=== PATIENT | male | born 2000 | race African-American/Black ===

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

== ENCOUNTER 2022-07-08 11:21 | Inpatient (IN) | payer BC, MEDICAID, OTHER ==
[~2022-07-08] VITALS: Ht 172.7 cm; Wt 75.5 kg
[2022-07-08 12:15] LABS: Basophils # (auto) 0 10 ^3/uL (0-0.2); Basophils % (auto) 0.2 % (0.0-2.0); Eosinophils % (auto) 9.1 % (0.0-7.0); Hematocrit 36.9 % (41.0-53.0); Hemoglobin 12.4 g/dL (13.5-17.5); Lymphocytes # (auto) 1.9 10 ^3/uL (0.4-5.4); Lymphocytes % (auto) 17.5 % (10.0-50.0); Mean Corpuscular Hemoglobin 28.8 pg (28.0-32.0); Mean Corpuscular Hgb Conc. 33.6 g/dL (32.0-36.0); Mean Corpuscular Volume 85.7 fL (80.0-100.0); Neutrophils % (auto) 64.2 % (37.0-80.0); Nucleated Red Blood Cells % 0.1 %; Red Blood Cells 4.31 10^6/uL (4.5-5.90); Red Cell Distribution Width 12.2 % (11.8-14.3); White Blood Cell 10.9 10^3/uL (4.4-10.8)
[2022-07-08] MEDS ORDERED: SODIUM CHLORIDE 0.9% 1,000 ML IV ONE ×3 (12:15→16:45)
[2022-07-08] MEDS ORDERED: PANTOPRAZOLE 40 MG/10 ML VIAL INJ IV ONE (12:15)
[2022-07-08 12:30] LABS: INR 1.03 (0.9-1.15); Partial Thromboplastin Time 31.2 sec (24.6-33.4)
[2022-07-08 12:45] LABS: Potassium 3.6 mmol/L (3.5-5.1)
[2022-07-08 12:52] LABS: Albumin 2.5 g/dL (3.4-5.0); BUN/Creatinine Ratio 5.9; Bilirubin, Total 0.3 mg/dL (0.2-1.0); Calcium 8.6 mg/dL (8.5-10.1); Total Protein 7.2 g/dL (6.4-8.2)
[2022-07-08] MEDS ORDERED: ONDANSETRON HCL 4 MG/2 ML VIAL IV ONE (13:15)
[2022-07-08] MEDS ORDERED: MORPHINE SULFATE 4 MG/ML SYR/VIAL IV ONE (13:15)
[2022-07-08] MEDS ORDERED: IOHEXOL 300 MG/ML 100ML BOTTLE IJ ONE (13:26)
[2022-07-08] MEDS ORDERED: cefTRIAXone 1GM/50ML D5W 50 ML IV ONE (15:30)
[2022-07-08] MEDS: metroNIDAZOLE 500MG/100ML 100 ML IV ONE ×2 (16:15→17:49)
[2022-07-08] MEDS: OCTREOTIDE ACETATE 500 MCG in SODIUM CHL 0.9% 99 ML IV SCH (16:45)
[2022-07-08] MEDS ORDERED: OCTREOTIDE ACETATE 100 MCG in SODIUM CHL 0.9% 50 ML IV ONE (16:45)
[2022-07-08] MEDS ORDERED: ONDANSETRON HCL 4 MG/2 ML VIAL IV PRN (16:45)
[2022-07-08] MEDS: HYDROcodone-ACET 5/325MG TAB PO PRN (17:37)
[2022-07-08] MEDS: MORPHINE SULFATE INJ 2 MG/ml SYRG IV PRN (20:35)
[2022-07-08 22:00] VITALS: BP 108/58
[2022-07-08] MEDS: metroNIDAZOLE 500MG/100ML 100 ML IV SCH (22:17)
[2022-07-08] MEDS: PANTOPRAZOLE 40 MG/10 ML VIAL INJ IV SCH (22:17)
[2022-07-08 22:23] VITALS: BP 108/58
[2022-07-08 22:52] LABS: Basophils # (auto) 0 10 ^3/uL (0-0.2); Basophils % (auto) 0.3 % (0.0-2.0); Eosinophils # (auto) 1.1 10 ^3/uL (0-0.8); Eosinophils % (auto) 9.2 % (0.0-7.0); Hematocrit 36.1 % (41.0-53.0); Hemoglobin 12.1 g/dL (13.5-17.5); Lymphocytes # (auto) 2.1 10 ^3/uL (0.4-5.4); Lymphocytes % (auto) 18.1 % (10.0-50.0); Mean Corpuscular Hemoglobin 28.9 pg (28.0-32.0); Mean Corpuscular Hgb Conc. 33.4 g/dL (32.0-36.0); Mean Corpuscular Volume 86.5 fL (80.0-100.0); Monocytes # (auto) 1.2 10 ^3/uL (0-1.3); Monocytes % (auto) 10.2 % (0.0-12.0); Neutrophils # (auto) 7.1 10 ^3/uL (1.6-8.6); Neutrophils % (auto) 62.2 % (37.0-80.0); Nucleated Red Blood Cells % 0.1 %; Red Blood Cells 4.18 10^6/uL (4.5-5.90); Red Cell Distribution Width 12.2 % (11.8-14.3); White Blood Cell 11.4 10^3/uL (4.4-10.8)
[2022-07-09] MEDS: MORPHINE SULFATE INJ 2 MG/ml SYRG IV PRN ×2 (02:05→10:22)
[2022-07-09] MEDS: OCTREOTIDE ACETATE 500 MCG in SODIUM CHL 0.9% 99 ML IV SCH (02:34)
[2022-07-09 05:00] VITALS: BP 113/67
[2022-07-09] MEDS: metroNIDAZOLE 500MG/100ML 100 ML IV SCH ×3 (05:31→21:51)
[2022-07-09 06:21] LABS: Albumin 2.3 g/dL (3.4-5.0); Calcium 8.1 mg/dL (8.5-10.1); Potassium 4.8 mmol/L (3.5-5.1)
[2022-07-09 06:25] LABS: BUN/Creatinine Ratio 5.3; Bilirubin, Total 0.4 mg/dL (0.2-1.0); Total Protein 6.2 g/dL (6.4-8.2)
[2022-07-09 09:00] VITALS: BP 105/51
[2022-07-09] MEDS: cefTRIAXone 1GM/50ML D5W 50 ML IV SCH (10:38)
[2022-07-09] MEDS: PANTOPRAZOLE 40 MG/10 ML VIAL INJ IV SCH ×2 (10:38→21:51)
[2022-07-09 10:47] LABS: Basophils # (auto) 0 10 ^3/uL (0-0.2); Basophils % (auto) 0.2 % (0.0-2.0); Eosinophils # (auto) 0.9 10 ^3/uL (0-0.8); Eosinophils % (auto) 8.3 % (0.0-7.0); Hematocrit 38.2 % (41.0-53.0); Hemoglobin 12.8 g/dL (13.5-17.5); Lymphocytes # (auto) 1.6 10 ^3/uL (0.4-5.4); Lymphocytes % (auto) 14.7 % (10.0-50.0); Mean Corpuscular Hemoglobin 29.1 pg (28.0-32.0); Mean Corpuscular Hgb Conc. 33.5 g/dL (32.0-36.0); Mean Corpuscular Volume 86.9 fL (80.0-100.0); Monocytes % (auto) 9.3 % (0.0-12.0); Neutrophils # (auto) 7.2 10 ^3/uL (1.6-8.6); Neutrophils % (auto) 67.5 % (37.0-80.0); Nucleated Red Blood Cells % 0.1 %; Red Cell Distribution Width 12.1 % (11.8-14.3); White Blood Cell 10.7 10^3/uL (4.4-10.8)
[2022-07-09 13:07] VITALS: BP 107/66
[2022-07-09] MEDS: methylPREDNISolone SOD SUCC 40 MG/ML VL IV SCH ×2 (14:21→21:51)
[2022-07-09] MEDS: MESALAMINE 400mg Delayed Release Cap PO SCH ×2 (14:21→21:51)
[2022-07-09 16:55] VITALS: BP 99/56
[2022-07-09 22:00] VITALS: BP 111/60
[2022-07-10 05:00] VITALS: BP 100/61
[2022-07-10] MEDS: methylPREDNISolone SOD SUCC 40 MG/ML VL IV SCH ×3 (05:08→21:16)
[2022-07-10] MEDS: MESALAMINE 400mg Delayed Release Cap PO SCH ×3 (05:09→21:16)
[2022-07-10] MEDS: metroNIDAZOLE 500MG/100ML 100 ML IV SCH ×3 (05:09→21:15)
[2022-07-10 07:35] LABS: Albumin 2.2 g/dL (3.4-5.0); Calcium 8.6 mg/dL (8.5-10.1); Potassium 4.1 mmol/L (3.5-5.1)
[2022-07-10 07:39] LABS: BUN/Creatinine Ratio 8.6; Bilirubin, Total 0.3 mg/dL (0.2-1.0); Total Protein 6.8 g/dL (6.4-8.2)
[2022-07-10 08:17] LABS: Basophils # (auto) 0 10 ^3/uL (0-0.2); Basophils % (auto) 0.1 % (0.0-2.0); Eosinophils # (auto) 0 10 ^3/uL (0-0.8); Eosinophils % (auto) 0.1 % (0.0-7.0); Hematocrit 38.3 % (41.0-53.0); Hemoglobin 12.9 g/dL (13.5-17.5); Lymphocytes % (auto) 7.7 % (10.0-50.0); Mean Corpuscular Hemoglobin 28.9 pg (28.0-32.0); Mean Corpuscular Hgb Conc. 33.6 g/dL (32.0-36.0); Monocytes # (auto) 0.6 10 ^3/uL (0-1.3); Monocytes % (auto) 4.6 % (0.0-12.0); Neutrophils # (auto) 11.5 10 ^3/uL (1.6-8.6); Neutrophils % (auto) 87.5 % (37.0-80.0); Red Blood Cells 4.45 10^6/uL (4.5-5.90); Red Cell Distribution Width 12.1 % (11.8-14.3); White Blood Cell 13.1 10^3/uL (4.4-10.8)
[2022-07-10 09:00] VITALS: BP 115/67
[2022-07-10] MEDS: PANTOPRAZOLE 40 MG/10 ML VIAL INJ IV SCH ×2 (09:39→21:16)
[2022-07-10] MEDS: cefTRIAXone 1GM/50ML D5W 50 ML IV SCH (09:39)
[2022-07-10 12:30] VITALS: BP 112/62
[2022-07-10 16:38] VITALS: BP 122/71
[2022-07-10 22:00] VITALS: BP 109/63
[2022-07-11 05:00] VITALS: BP 106/55
[2022-07-11] MEDS: methylPREDNISolone SOD SUCC 40 MG/ML VL IV SCH ×3 (05:38→21:28)
[2022-07-11] MEDS: MESALAMINE 400mg Delayed Release Cap PO SCH ×3 (05:38→21:28)
[2022-07-11] MEDS: metroNIDAZOLE 500MG/100ML 100 ML IV SCH ×3 (05:38→21:28)
[2022-07-11 09:00] VITALS: BP 115/59
[2022-07-11] MEDS: cefTRIAXone 1GM/50ML D5W 50 ML IV SCH (09:53)
[2022-07-11] MEDS: PANTOPRAZOLE 40 MG/10 ML VIAL INJ IV SCH ×2 (09:54→21:28)
[2022-07-11] MEDS ORDERED: OMNIPAQUE ORAL SOLN 500ml 12mg/ml PO ONE (10:22)
[2022-07-11] MEDS ORDERED: IOHEXOL 300 MG/ML 100ML BOTTLE IJ ONE (12:25)
[2022-07-11 13:00] VITALS: BP 121/79
[2022-07-11 17:00] VITALS: BP 105/59
[2022-07-11 22:00] VITALS: BP 119/68
[2022-07-12 04:51] VITALS: BP 112/66
[2022-07-12] MEDS: metroNIDAZOLE 500MG/100ML 100 ML IV SCH ×2 (05:24→14:00)
[2022-07-12] MEDS: MESALAMINE 400mg Delayed Release Cap PO SCH ×2 (05:24→14:00)
[2022-07-12 09:00] VITALS: BP 112/63
[2022-07-12] MEDS ORDERED: methylPREDNISolone SOD SUCC 40 MG/ML VL IV SCH (10:00)
[2022-07-12] MEDS ORDERED: diphenhdrAMINE HCL 50 MG/1 ML VL ONE (11:47)
[2022-07-12] MEDS ORDERED: LIDOCAINE VISCOUS 2% 15ML UD ONE (11:47)
[2022-07-12] MEDS: cefTRIAXone 1GM/50ML D5W 50 ML IV SCH (12:42)
[2022-07-12] MEDS: PANTOPRAZOLE 40 MG/10 ML VIAL INJ IV SCH (12:43)
[2022-07-12 13:00] VITALS: BP 113/71
[2022-07-12] MEDS ORDERED: FLEET ENEMA(ADULT) 135 ML PR ONE (14:45)
[2022-07-12] MEDS: MIDAZOLAM HCL 5 MG/ML-1ML VIAL ONE ×2 (16:43→16:46)
[2022-07-12] MEDS: fentaNYL CITRATE 100 MCG/2 ML VL ONE ×2 (16:43→16:46)
[2022-07-12 17:00] VITALS: BP 113/59
[2022-07-13] MEDS: PANTOPRAZOLE 40 MG/10 ML VIAL INJ IV SCH ×3 (00:18→21:34)
[2022-07-13] MEDS: metroNIDAZOLE 500MG/100ML 100 ML IV SCH ×4 (00:18→21:33)
[2022-07-13] MEDS: MESALAMINE 400mg Delayed Release Cap PO SCH ×4 (00:18→21:34)
[2022-07-13 05:00] VITALS: BP 93/63
[2022-07-13] MEDS: HYDROcodone-ACET 5/325MG TAB PO PRN (05:45)
[2022-07-13 05:54] LABS: Hematocrit 37.3 % (41.0-53.0); Hemoglobin 12.7 g/dL (13.5-17.5); Mean Corpuscular Hgb Conc. 34.1 g/dL (32.0-36.0); Red Blood Cells 4.39 10^6/uL (4.5-5.90); White Blood Cell 12.6 10^3/uL (4.4-10.8)
[2022-07-13 05:56] LABS: Band Neutrophils % (manual) 0; Basophils % (manual) 0 (0.0-2.0); Blast Cells 0; Metamyelocytes % 0; Promyelocytes % 0; Reactive Lymphocytes 0
[2022-07-13 06:13] LABS: INR 1.13 (0.9-1.15); Partial Thromboplastin Time 31.7 sec (24.6-33.4)
[2022-07-13 06:15] LABS: Calcium 8.4 mg/dL (8.5-10.1); Potassium 4.3 mmol/L (3.5-5.1)
[2022-07-13 06:17] LABS: BUN/Creatinine Ratio 14.5
[2022-07-13 07:15] LABS: Eosinophils % (manual) 2 (0-7); Lymphocytes % (manual) 24 (10.0-50.0); Monocytes % (manual) 5 (0-12); Myelocytes % 5
[2022-07-13] MEDS: cefTRIAXone 1GM/50ML D5W 50 ML IV SCH (08:10)
[2022-07-13] MEDS: MORPHINE SULFATE INJ 2 MG/ml SYRG IV PRN (08:11)
[2022-07-13 09:00] VITALS: BP 117/56
[2022-07-13] MEDS ORDERED: methylPREDNISolone SOD SUCC 40 MG/ML VL IV SCH (10:00)
[2022-07-13 13:00] VITALS: BP 104/58
[2022-07-13 16:55] VITALS: BP 101/51
[2022-07-13 22:00] VITALS: BP 102/60
[2022-07-13 22:03] LABS: Hematocrit 38.8 % (41.0-53.0); Hemoglobin 13.1 g/dL (13.5-17.5); Mean Corpuscular Hemoglobin 28.9 pg (28.0-32.0); Mean Corpuscular Hgb Conc. 33.7 g/dL (32.0-36.0); Mean Corpuscular Volume 85.9 fL (80.0-100.0); Red Blood Cells 4.51 10^6/uL (4.5-5.90); White Blood Cell 15.3 10^3/uL (4.4-10.8)
[2022-07-13 22:09] LABS: Basophils % (manual) 0 (0.0-2.0); Blast Cells 0; Metamyelocytes % 0; Myelocytes % 0; Reactive Lymphocytes 0
[2022-07-13 22:37] LABS: Band Neutrophils % (manual) 7; Eosinophils % (manual) 1 (0-7); Lymphocytes % (manual) 16 (10.0-50.0); Monocytes % (manual) 8 (0-12); Promyelocytes % 1
[2022-07-14] MEDS: MORPHINE SULFATE INJ 2 MG/ml SYRG IV PRN ×2 (00:30→04:30)
[2022-07-14 05:00] VITALS: BP 117/70
[2022-07-14 05:20] LABS: Basophils # (auto) 0 10 ^3/uL (0-0.2); Basophils % (auto) 0.3 % (0.0-2.0); Eosinophils # (auto) 0.3 10 ^3/uL (0-0.8); Eosinophils % (auto) 1.6 % (0.0-7.0); Hematocrit 38.7 % (41.0-53.0); Hemoglobin 12.9 g/dL (13.5-17.5); Lymphocytes # (auto) 2.9 10 ^3/uL (0.4-5.4); Lymphocytes % (auto) 16.2 % (10.0-50.0); Mean Corpuscular Hemoglobin 28.6 pg (28.0-32.0); Mean Corpuscular Hgb Conc. 33.4 g/dL (32.0-36.0); Mean Corpuscular Volume 85.6 fL (80.0-100.0); Monocytes # (auto) 1.5 10 ^3/uL (0-1.3); Monocytes % (auto) 8.5 % (0.0-12.0); Neutrophils # (auto) 13.2 10 ^3/uL (1.6-8.6); Neutrophils % (auto) 73.4 % (37.0-80.0); Red Blood Cells 4.52 10^6/uL (4.5-5.90); Red Cell Distribution Width 12.3 % (11.8-14.3); White Blood Cell 17.9 10^3/uL (4.4-10.8)
[2022-07-14 05:46] LABS: Albumin 2.7 g/dL (3.4-5.0); Calcium 8.5 mg/dL (8.5-10.1); Potassium 4.1 mmol/L (3.5-5.1)
[2022-07-14 05:49] LABS: BUN/Creatinine Ratio 11.4
[2022-07-14 05:53] LABS: Bilirubin, Total 0.3 mg/dL (0.2-1.0); Total Protein 6.5 g/dL (6.4-8.2)
[2022-07-14] MEDS: metroNIDAZOLE 500MG/100ML 100 ML IV SCH ×3 (05:55→21:03)
[2022-07-14] MEDS: MESALAMINE 400mg Delayed Release Cap PO SCH ×3 (05:55→21:04)
[2022-07-14] MEDS ORDERED: DOXAPRAM HCL 20 MG/ML 20ML VIAL INJ IV ONE (07:27)
[2022-07-14] MEDS ORDERED: ROCURONIUM 10MG/ML 10ML VIAL IV ONE (07:28)
[2022-07-14] MEDS ORDERED: SUCCINYLCHOLINE CHLORIDE 20 MG/ML 10ML VIAL IV ONE (07:28)
[2022-07-14] MEDS ORDERED: PROPOFOL 10 MG/ML 20 ML IV ONE (07:30)
[2022-07-14] MEDS ORDERED: HYDROmorphone HCL 2 MG/ML VL/or syr IV PRN ×2 (08:00)
[2022-07-14] MEDS ORDERED: METOCLOPRAMIDE HCL 5MG/ml INJ 2ml VIAL IV PRN (08:00)
[2022-07-14] MEDS ORDERED: MORPHINE SULFATE 4 MG/ML SYR/VIAL IV PRN (08:00)
[2022-07-14] MEDS ORDERED: fentaNYL CITRATE 100 MCG/2 ML VL ONE (08:07)
[2022-07-14] MEDS ORDERED: MIDAZOLAM HCL 2MG/2ML 2ml VIAL (1mg/ml) ONE (08:07)
[2022-07-14] MEDS ORDERED: MEPERIDINE HCL (25 MG/ML) 1ML VIAL ONE (08:07)
[2022-07-14] MEDS ORDERED: NEOSTIGMINE 1 MG/ML INJ (10mg/10ML VIAL) ONE (08:08)
[2022-07-14] MEDS ORDERED: GLYCOPYRROLATE 0.2 MG/ML 1ML VIAL ONE (08:08)
[2022-07-14] MEDS ORDERED: SODIUM CHLORIDE LOCK 10 ML ONE (08:08)
[2022-07-14] MEDS ORDERED: ONDANSETRON HCL 4 MG/2 ML VIAL ONE (08:08)
[2022-07-14] MEDS ORDERED: DexAMETHasone SOD PHOS 10MG/1ML VIAL INJ ONE (08:08)
[2022-07-14 09:00] VITALS: BP 117/68
[2022-07-14] MEDS ORDERED: BUPIVACAINE 0.5% P/F INJ 10 ML VIAL ONE (09:49)
[2022-07-14] MEDS: cefTRIAXone 1GM/50ML D5W 50 ML IV SCH (10:58)
[2022-07-14] MEDS: PANTOPRAZOLE 40 MG/10 ML VIAL INJ IV SCH ×2 (10:59→21:05)
[2022-07-14 13:00] VITALS: BP 117/61
[2022-07-14 17:00] VITALS: BP 122/62
[2022-07-14] MEDS: HYDROcodone-ACET 5/325MG TAB PO PRN (21:04)
[2022-07-14 21:30] VITALS: BP 118/77
[2022-07-15] MEDS: HYDROcodone-ACET 5/325MG TAB PO PRN (04:02)
[2022-07-15 05:00] VITALS: BP 110/64
[2022-07-15] MEDS: metroNIDAZOLE 500MG/100ML 100 ML IV SCH ×2 (05:21→13:34)
[2022-07-15] MEDS: MESALAMINE 400mg Delayed Release Cap PO SCH ×2 (05:21→13:34)
[2022-07-15 09:00] VITALS: BP 130/75
[2022-07-15] MEDS: cefTRIAXone 1GM/50ML D5W 50 ML IV SCH (10:20)
[2022-07-15] MEDS: PANTOPRAZOLE 40 MG/10 ML VIAL INJ IV SCH (10:25)
[2022-07-15] MEDS ORDERED: METR500T PO (12:18)
[2022-07-15] MEDS ORDERED: CEPH-510 PO (12:18)
[2022-07-15] MEDS ORDERED: MESA400C PO (12:18)
[2022-07-15 13:00] VITALS: BP 118/76
[2022-07-15 16:51] VITALS: BP 100/50
== END 2022-07-15 19:00 | disposition home or self-care (01) | DRG 234 ==
LOC: ER 11:21 → OVERFLOW 16:43 → CENTRAL 22:07
PROVIDERS: ADMIT Internal Medicine; ATTEND Internal Medicine
PROC: 0DBN8ZX Excision of Sigmoid Colon, Via Natural or Artificial Opening Endoscopic, Diagnostic (ICD-10-PCS; principal; 2022-07-12 16:38)
PROC: 0DTJ4ZZ Resection of Appendix, Percutaneous Endoscopic Approach (ICD-10-PCS; 2022-07-14)
DX: K51.90 Ulcerative colitis, unspecified, without complications (principal); K35.33 Acute appendicitis with perforation, localized peritonitis, and gangrene, with abscess; E87.1 Hypo-osmolality and hyponatremia; K92.2 Gastrointestinal hemorrhage, unspecified; E88.09 Other disorders of plasma-protein metabolism, not elsewhere classified; Z20.822 Contact with and (suspected) exposure to COVID-19; J02.9 Acute pharyngitis, unspecified; Z82.49 Family history of ischemic heart disease and other diseases of the circulatory system
CPT/HCPCS: 36415; 45331; 74018; 74177; 76705; 80048; 80053; 82270; 83605; 83690; 85007; 85025; 85027; 85048; 85610; 85730; 86850; 86900; 86901; 87040; 87045; 87427; 87493; 96361; 96374; 96375; C9113; G0378; J0330; J0696; J1100; J2250; J2405; J2704; J3490